=== PATIENT | female | born 1955 | race Caucasian/White ===

== ENCOUNTER 2020-06-18 20:53 | Inpatient (IN) | payer OTHER, MEDICAID ==
[~2020-06-18] VITALS: Ht 170.2 cm; Wt 80.7 kg
--- NOTE | 2020-06-18 21:24 | NUR ---
Patient to ER bed 2 to gown for evaluation. Side rails up. Report given to FEBRUARY.
[2020-06-18 21:25] VITALS: BP_SYST 144
--- NOTE | 2020-06-18 21:25 | NUR ---
ER at bedside examining patient.
--- NOTE | 2020-06-18 21:26 | NUR ---
PT AAO AND AMBULATORY C/O RIGHT SIDED ABDOMINAL PAIN FOR 8 DAYS, HEADACHES, DIARRHEA X 1 TODAY. PT REPORTS PAIN 8-9/10 ON PAIN SCALE. V/S STABLE.
--- NOTE | 2020-06-18 21:40 | NUR ---
ER Dr. Villanueva at bedside examining patient.
[2020-06-18] MEDS ORDERED: NACL 0.9% 1,000 ML IV ONE (21:46)
[2020-06-18] MEDS ORDERED: ONDANSETRON HCL 4 MG/2 ML VIAL IVP ONE (22:00)
[2020-06-18] MEDS ORDERED: KETOROLAC TROMETHAMINE 30 MG VIAL IVP ONE (22:00)
--- NOTE | 2020-06-18 22:02 | NUR ---
Patient transported to radiology via gurney, accompanied by RT.
[2020-06-18 22:07] LABS: BILIRUBIN,URINE NEGATIVE (NEGATIVE); BLOOD, URINE NEGATIVE (NEGATIVE); CLARITY/URINE CLEAR (CLEAR); COLOR,URINE YELLOW (YELLOW); GLUCOSE,URINE NEGATIVE (NEGATIVE); KETONES,URINE NEGATIVE (NEGATIVE); LEUKOCYTE ESTERASE ,URINE NEGATIVE (NEGATIVE); NITRITE, URINE NEGATIVE (NEGATIVE); PROTEIN URINE NEGATIVE (NEGATIVE); UROBILINOGEN,URINE 0.2 (0.2-1.0)
[2020-06-18 22:17] LABS: BASOPHILS % (AUTO) 0.3 % (0.0-2.0); EOSINOPHILS # (AUTO) 0.2 K/uL (0.0-0.4); EOSINOPHILS % (AUTO) 2.2 % (0.0-4.0); HEMATOCRIT 34.1 % (36-48); HEMOGLOBIN 11.2 g/dL (12.0-16.0); LYMPHOCYTES # (AUTO) 1.7 K/uL (1.0-5.5); LYMPHOCYTES % (AUTO) 24.3 % (20.5-51.5); MEAN CORPUSCULAR HEMOGLOBIN 28 pg (27-31); MEAN CORPUSCULAR HGB CONC 33 % (32-36); MEAN CORPUSCULAR VOLUME 86 fL (79.0-98.0); MONOCYTES # (AUTO) 0.6 K/uL (0.0-1.0); MONOCYTES % (AUTO) 7.8 % (1.7-9.3); NEUTROPHILS # (AUTO) 4.6 K/uL (1.8-7.7); NEUTROPHILS % (AUTO) 65.4 % (40.0-70.0); PLATELET COUNT (AUTO) 298 K/uL (130-430); RED BLOOD CELL COUNT(AUTO) 3.96 MIL/uL (4.2-6.2); RED CELL DISTRIBUTION WIDTH 15.6 % (9.0-15.0); WHITE BLOOD COUNT (AUTO) 7.1 K/uL (4.8-10.8)
[2020-06-18 22:21] LABS: CALCIUM 9.3 mg/dL (8.4-11.0); CREATININE 1.36 mg/dL (0.55-1.30); POTASSIUM 3.7 mmol/L (3.5-5.1)
[2020-06-18 22:23] LABS: PROTHROMBIN TIME 9.8 SECS (9.5-12.5)
[2020-06-18 22:26] LABS: ALBUMIN 3.7 g/dL (3.4-4.8); TOTAL BILIRUBIN 0.3 mg/dL (0.0-1.0)
--- NOTE | 2020-06-18 23:23 | NUR ---
Patient states " still in pain, pain rate 05/17." , Dr. Villanueva notified.
[2020-06-19] MEDS ORDERED: MORPHINE 4 MG/ML INJ. SYRINGE IVP ONE
[2020-06-19] MEDS: HYDROmorphone 1 MG INJ. 1 MG/ML AMPUL IVP PRN ×3 (01:58→14:37)
--- NOTE | 2020-06-19 02:01 | NUR ---
Patient states "I am still in pain, pain rate 7/10."
[2020-06-19] MEDS ORDERED: BUPR300T55 PO (02:19)
[2020-06-19] MEDS ORDERED: GABA800T PO (02:19)
[2020-06-19] MEDS ORDERED: METO25TA6 PO (02:19)
[2020-06-19] MEDS ORDERED: PERC10 PO (02:19)
[2020-06-19] MEDS ORDERED: GABA-533 PO (02:19)
--- NOTE | 2020-06-19 02:21 | NUR ---
Medication reconciliation completed with information provided by patient. Any prior medication reconciliation on file was reviewed and corrected.
[2020-06-19] MEDS: D5/0.45 NS 1,000 ML IV SCH ×2 (02:38→14:41)
--- NOTE | 2020-06-19 04:32 | NUR ---
Transfer patient to Room 7, per patient request.
--- NOTE | 2020-06-19 05:15 | NUR ---
Patient resting quietly. No acute distress noted. Vital signs within normal range.
--- NOTE | 2020-06-19 07:30 | NUR ---
PT RECEIVED FROM [facility] [employer] [facility] LOAD AND UNLOAD. PT IS RESTING WITH LIGHTS DIM. RN WILL CHECK ON HER AGAIN SOON.
--- NOTE | 2020-06-19 08:03 | NUR ---
CHARGE NURSE INFORMED RN THAT PT IS READY TO BE TRANSFERRED TO [facility], 109A.
[2020-06-19 08:13] LABS: BASOPHILS % (AUTO) 0.4 % (0.0-2.0); CALCIUM 8.5 mg/dL (8.4-11.0); CREATININE 1.23 mg/dL (0.55-1.30); EOSINOPHILS # (AUTO) 0.1 K/uL (0.0-0.4); EOSINOPHILS % (AUTO) 2.6 % (0.0-4.0); HEMATOCRIT 30.6 % (36-48); HEMOGLOBIN 9.9 g/dL (12.0-16.0); LYMPHOCYTES # (AUTO) 1.5 K/uL (1.0-5.5); LYMPHOCYTES % (AUTO) 29.4 % (20.5-51.5); MEAN CORPUSCULAR HEMOGLOBIN 28 pg (27-31); MEAN CORPUSCULAR HGB CONC 32 % (32-36); MEAN CORPUSCULAR VOLUME 87 fL (79.0-98.0); MONOCYTES # (AUTO) 0.4 K/uL (0.0-1.0); MONOCYTES % (AUTO) 7.6 % (1.7-9.3); NEUTROPHILS # (AUTO) 3.1 K/uL (1.8-7.7); PLATELET COUNT (AUTO) 231 K/uL (130-430); RED BLOOD CELL COUNT(AUTO) 3.54 MIL/uL (4.2-6.2); RED CELL DISTRIBUTION WIDTH 15.7 % (9.0-15.0); WHITE BLOOD COUNT (AUTO) 5.2 K/uL (4.8-10.8)
[2020-06-19 08:28] LABS: TOTAL BILIRUBIN 0.2 mg/dL (0.0-1.0)
--- NOTE | 2020-06-19 08:45 | NUR ---
admission notes rec patient from er with a dx of abdominal pain. ivf infusing well on the l ac/ no infiltration noted. resp easy and unlabored. no sob noted. bed to the lowest position and side rails up and locked. call light within reached know when to call for assistance. oriented with pt's surrounding.
--- NOTE | 2020-06-19 08:45 | NUR ---
pt has been taken to the floor via w/c. pt was ambulated to the bed. report given to Lorena GLYNN.
[2020-06-19 09:00] VITALS: BP_SYST 156
--- NOTE | 2020-06-19 09:44 | NUR ---
DR HANKINS PAGED PAGED DR PINZON FOR ORDERS [id number] SPOKE TO SILVIA
--- NOTE | 2020-06-19 10:00 | NUR ---
rounds was taken for ct lumbar without contrast via wheelchair. seen by dr moraes at bedside. call light withn reached.
--- NOTE | 2020-06-19 10:13 | NUR ---
CONSULTATION PAGED/CALLED Reason for Consultation: [] AGITATION Person Who was Notified: [] LEFT A VM ON HIS CELL PHONE Consulting Physician: [] NOAH AVALOS, ANGIOGRAPHER FOR DR Melvin ART Experimental Psychologist Specialty: [] NEURO Ordering Physician: [] DR PINZON Addendum: 06/19/20 at 1016 by Yanira Witt MT/ ERROR REASON FOR CONSULTATION: BACK PAIN (NOT AGITATION)
--- NOTE | 2020-06-19 12:39 | NUR ---
CONSULTATION PAGED/CALLED Reason for Consultation: [] CHEST PAIN Person Who was Notified: [] PENNY Consulting Physician: [] DR TRAN, BOOK CANVASSER FOR DR MELENDEZ Casino Controller Specialty: [] CARDIO Ordering Physician: [] DR PINZON
[2020-06-19 12:51] VITALS: BP_SYST 156
--- NOTE | 2020-06-19 14:00 | NUR ---
rounds seen by dr rodríguez at bedside for neuro consult. call light within reached.
[2020-06-19 15:10] VITALS: BP_SYST 156
[2020-06-19 16:41] VITALS: BP_SYST 123
[2020-06-19] MEDS ORDERED: OXYCODONE/ACETAMINOPHEN *10*mg/325 mg TABLET PO PRN (16:45)
--- NOTE | 2020-06-19 19:11 | NUR ---
Paged Dr. Gaspar, to notify him about patient left AMA
[2020-06-20] MEDS ORDERED: buPROPion HCL 150 MG XL TAB PO SCH (09:00)
[2020-06-20] MEDS ORDERED: GABAPENTIN 400 MG CAPSULE PO SCH (09:00)
[2020-06-20] MEDS ORDERED: METOPROLOL TARTRATE 25 MG TABLET PO SCH (09:00)
== END 2020-06-19 18:55 | disposition left against medical advice (07) | DRG 206 ==
LOC: SED 20:53 → SMU 06-19 00:24
PROVIDERS: ADMIT Internal Medicine; ATTEND Internal Medicine
DX: M94.0 Chondrocostal junction syndrome [Tietze] (principal); G62.9 Polyneuropathy, unspecified; M79.7 Fibromyalgia; G89.4 Chronic pain syndrome; M54.16 Radiculopathy, lumbar region; M54.12 Radiculopathy, cervical region; J44.9 Chronic obstructive pulmonary disease, unspecified; Z53.29 Procedure and treatment not carried out because of patient's decision for other reasons; Z96.652 Presence of left artificial knee joint; Z90.710 Acquired absence of both cervix and uterus; Z90.49 Acquired absence of other specified parts of digestive tract; Z82.3 Family history of stroke; Z87.891 Personal history of nicotine dependence
CPT/HCPCS: 36415; 71045; 72131; 80053; 81003; 82150-TC; 83690-TC; 85025; 85610-TC; 93005; 96361; 96374; 96375; 99285; J1170; J1885; J2270; J2405